=== PATIENT | male | born 1990 | race Caucasian/White ===

== ENCOUNTER 2018-08-13 09:10 | Observation (INO) | payer BC ==
--- NOTE | 2018-08-13 08:35 | PDANEPAE ---
ANE History of Present Illness 3 degree heart block ANE Past Medical History - Cardiovascular History Hx Hypertension: No Hx Arrhythmias: Yes Hx Chest Pain: Yes Hx Coronary Artery / Peripheral Vascular Disease: No Hx CHF / Valvular Disease: No Hx Palpitations: No - Pulmonary History Hx COPD: No Hx Asthma/Reactive Airway Disease: No Hx Recent Upper Respiratory Infection: No Hx Oxygen in Use at Home: No Hx Sleep Apnea: No - Endocrine History Hx Diabetes: No Hypothyroid: No Hyperthyroid: No Obesity: no - Renal History Hx Renal Disorders: No - Liver History Hx Hepatic Disorders: No - Neurological & Psychiatric Hx Hx Neurological and Psychiatric Disorders: No - Cancer History Hx Cancer: No - Congenital Disorder History Hx Congenital Disorders: No - GI History GERD: no Hx Gastrointestinal Disorders: No - Chronic Pain History Chronic Pain: No ANE Review of Systems Review of systems is: negative Review of Systems: - Exercise capacity METS (RN): 4 METS ANE Patient History - Allergies Allergies/Adverse Reactions: No Known Allergies Allergy (Verified 08/06/18 10:49) - Home Medications Home medications: home medication list seen and reviewed Home Medications: NK [No Known Home Meds] 05/29/15 [Last Taken Unknown] - NPO status NPO Status: no food or drink >8 hours - Anes Hx Anes Hx: no prior problems - Smoking Hx Smoking Status: Never smoked Marijuana use: No - Alcohol Use Alcohol Use: Rarely - Family Anes Hx Family Anes Hx: none ANE Physical Exam - Airway Neck exam: FROM Mallampati Score: Class 2 Mouth exam: normal dental/mouth exam - Pulmonary Pulmonary: no respiratory distress, clear to auscultation - Cardiovascular Cardiovascular: regular rate and rhythym, no murmur, rub, or gallop - ASA Status ASA Status: III ANE Anesthesia Plan Anesthesia Plan: MAC Total IV Anesthesia: Yes
[2018-08-13] MEDS ORDERED: diphenhydrAMINE 25 MG CAP PO ONE (09:21)
[2018-08-13] MEDS ORDERED: ceFAZolin 2 GM/DEXTROSE 100 ML IV ONE (09:21)
[2018-08-13] MEDS ORDERED: NS 1,000 ML IV ONE (09:21)
[2018-08-13 10:17] LABS: PLATELET COUNT 192 10^3/uL (150-400)
[2018-08-13 10:24] LABS: INR 1.02 (0.83-1.16); PROTIME(PATIENT) 13.6 SEC (12.0-15.0)
--- NOTE | 2018-08-13 11:54 | PDGENHP ---
History & Physical Chief Complaint: presyncope, f/h of scd, 9 s of asymptomatic CHB at night Relevant Physical Exam: s1s2 rrr cta ao3 Cardiorespiratory Assessment: for micra pm implant. linq explant
[2018-08-13] MEDS ORDERED: LIDOCAINE 1% 300 MG/30 ML SDV ONE (11:55)
[2018-08-13] MEDS ORDERED: BUPIVACAINE 0.75% 10 ML SDV ONE (11:55)
[2018-08-13] MEDS ORDERED: MIDAZOLAM 2 MG/2 ML VIAL ONE (12:31)
[2018-08-13] MEDS ORDERED: PROPOFOL/EMULSION 500 MG/50 ML BOTTLE IV ONE (12:47)
[2018-08-13] MEDS ORDERED: fentaNYL 100 MCG/2 ML INJ ONE ×2 (12:47→13:57)
[2018-08-13] MEDS ORDERED: IOPAMIDOL (ISOVUE-300) 100 ML BTL ONE ×2 (12:54→13:50)
[2018-08-13] MEDS ORDERED: MIDAZOLAM 2 MG/2 ML VIAL IVP ONE (13:07)
[2018-08-13] MEDS ORDERED: HEPARIN 10,000 UNIT/10 ML MDV (1,000 UNIT/ML) ONE (13:08)
--- NOTE | 2018-08-13 13:08 | POSTANESTH ---
Post Anesthetic Evaluation Cardiovascular Status: Normal, Stable Respiratory Status: Normal, Stable Level of Consciousness/Mental Status: Can Participate in Eval Pain Control: Adequate, Prn Tx Ordered Nausea/Vomiting Control: Adequate, Prn Tx Ordered Complications Possibly Related to Anesthesia: None Noted
[2018-08-13] MEDS ORDERED: ONDANSETRON 4 MG/2 ML VIAL ONE (13:44)
[2018-08-13] MEDS ORDERED: DEXAMETHASONE 4 MG/ML VIAL ONE (13:44)
[2018-08-13] MEDS ORDERED: LIDOCAINE 2% 5 ML SDV ONE (13:45)
[2018-08-13] MEDS ORDERED: fentaNYL 100 MCG/2 ML INJ IVP PRN (15:32)
[2018-08-13] MEDS ORDERED: NALOXONE HCL 0.4 MG/ML INJ IVP PRN (15:32)
[2018-08-13] MEDS ORDERED: MEPERIDINE 25 MG/0.5 ML AMP IVP PRN (15:32)
[2018-08-13] MEDS ORDERED: PROMETHAZINE HCL 25 MG/ML INJ IVP PRN (15:32)
[2018-08-13] MEDS ORDERED: ONDANSETRON 4 MG/2 ML VIAL IVP PRN (15:32)
[2018-08-14 06:31] VITALS: BP 109/48
[2018-08-14 06:33] LABS: PLATELET COUNT 193 10^3/uL (150-400)
[2018-08-14] MEDS ORDERED: PNEUMOCOCCAL 0.5ML VACCINE VIAL (PNEUMOVAX 23) IM ONE (08:31)
--- NOTE | 2018-08-14 21:28 | GDS ---
[f rep st] DISCHARGE SUMMARY SUPERVISING PHARMACY SERVICES DIRECTOR: Wesley Dee MD ADMISSION DIAGNOSES: Intermittent complete heart block. DISCHARGE DIAGNOSES: Intermittent complete heart block, status post implant of a leadless permanent pacemaker. PROCEDURES PERFORMED DURING HOSPITALIZATION: 1. Electrocardiogram. 2. Chest x-ray. 3. Implant of a Micra leadless permanent pacemaker. HOSPITAL COURSE: Patient presented 08/13/2018, for implant of a leadless permanent pacemaker in the setting of intermittent complete heart block. He underwent successful Micra implantation with Dr. Wesley Dee without any intra- procedure complications. He has had increased ventricular ectopy following his procedure, which is mildly symptomatic and has slowly improved throughout the night. He has been ambulating around his room this morning without issue, and he is appropriate and stable for discharge home today. CURRENT PHYSICAL EXAMINATION: GENERAL: Alert and oriented x4, no apparent distress. VITAL SIGNS: Blood pressure 109/48, heart rate 84, respiratory rate 15, SpO2 98% on room air, temp 36.7 degrees Celsius. RESPIRATORY: Lungs are clear to auscultation without adventitious breath sounds. CARDIAC: Normal S1 and S2. No S3, S4, or murmurs. Rhythm is regular. ABDOMEN: Normoactive bowel sounds times all 4 quadrants. No masses or tenderness. Abdomen is soft to palpation. SKIN: [place], warm, dry without cyanosis, clubbing, or peripheral edema. EXTREMITIES: Right groin pursestring suture removed intact without evidence of hematoma, redness, oozing, swelling, or warmth. Pulses are 2+ bilaterally. No edema. LABORATORY STUDIES: Drawn today. CBC and BMP are stable compared to preprocedure. PROCEDURES: Micra permanent implant of a leadless permanent pacemaker as mentioned above. Device interrogation this morning demonstrates normal device function. Chest x-ray immediately post procedure demonstrated normal lead positioning without new acute abnormalities. DISCHARGE DISPOSITION: Patient will be discharged home in stable condition. He is under activity restrictions as below. DISCHARGE MEDICATIONS: Please see discharge medication reconciliation sheet for full details. Please note that there have been no medication changes during this hospitalization. DISCHARGE INSTRUCTIONS: Post Micra implant instructions reviewed with patient and his father in detail. 1. We discussed activity restrictions including lifting no more than 10 pounds and avoiding strenuous exercise for the next month. 2. He will avoid submerged bathing for at least the next 10 days or until his groin site appears healed. 3. He will get up and walk around every 45 minutes for the next 45 days. 4. We reviewed bleeding precautions and monitoring for signs of lightheadedness , dizziness, syncope, or presyncope. Patient and father verbalized understanding regarding all discharge instructions. He understands that if his ventricular ectopy persists longer than 1 month, we may consider retrieval of his leadless pacemaker and repositioning to an alternative location in the ventricle. He will plan to follow up in 1 month, sooner for any new or concerning symptoms. TIME SPENT ON DISCHARGE: Greater than 30 minutes. /[id number]/MODL MTDD
--- NOTE | 2018-08-14 21:41 | EPPROC ---
Electrophysiology Procedure Note: Procedure date 08/13/18 IMPLANTATION OF [employer] MICRA LEADLESS PACEMAKER Patient was brought to the EP lab in fasting nonsedated state. Anesthesiologist administered LMA. Right femoral vein was accessed using modified Seldinger technique under ultrasound guidance. A [id number] stitch was placed around the wire. 1 cm incision was made at the entry site and dilated appropriately. 8 Tamazight sheath was placed in the right femoral vein. Venogram was done to confirm appropriate size of vein for large sheath and to rule out anatomic aberrations. All sheath and catheter manipulations were performed under biplane fluoroscopy. Heparin 3000 units x 2 was administered intravenously. Moreover heparinized saline was infused through the side port of the Micra sheath at 150 mL/hour. 0.035 in J guidewire was advanced to the superior vena cava. Over this a 5 Tamazight straight glide catheter was advanced into the superior vena cava. J guidewire was exchanged for a GI Trackerquist stiff guidewire. Tract was pre-dilated with 14 and 20 Fr dilators. Micra 27 Fr sheath was flushed and advanced to the mid right atrium under fluoroscopy and the guidewire and dilator were removed. Micra delivery system was flushed according to instructions and advanced into the Micra sheath. Micra sheath was pulled back into the inferior vena cava. Micra delivery system was advanced through the tricuspid valve into the right ventricle. Appropriate location for pacemaker placement was identified. Right ventriculogram was performed in two views. Delivery system was advanced further , device was deployed. Multiple cine - angiography views were obtained during tug test to confirm that 2 of 4 tines were appropriately deployed. There were 4 locations that did not yield thresholds of < 1 V @ 0.24 ms. Each time the device was retrieved and retracted into the sheath. Once the device was removed and inspected for clot, there was none. Final (5th) location was at the high interventricular septum. This yielded excellent pacing thresholds. Device parameters were checked and found to be excellent. Device parameters were re-checked after 5 min and since they were stable, the retaining suture was cut and gently pulled out. Device remained in stable location after suture was removed. Device parameters remained unchanged with expected slight increase in impedance. 27 Tamazight sheath was removed and figure of 8 suture was applied around the femoral access site. Manual pressure was also applied. Patient left the EP lab in stable condition. There were no immediate complications. Device [employer] Micra [id number] Placement RV Septum R wave 11.3 mV Impedance 930 ohm Threshold 0.63 V @ 0.24 ms Patient Problems: Problems Problem Status Onset Near syncope Acute Complete heart block Acute Chest pain Acute
--- NOTE | 2018-08-19 15:15 | CPEKG ---
Test Reason : OPEN Blood Pressure : / mmHG Vent. Rate : 063 BPM Atrial Rate : 063 BPM P-R Int : 267 ms QRS Dur : 078 ms QT Int : 418 ms P-R-T Axes : 060 064 047 degrees QTc Int : 428 ms Sinus rhythm Prolonged NE interval Incomplete right bundle branch block Confirmed by Felix Bell ([id number]) on 08/19/2018 3:15:22 PM Referred By: Wesley Dee Confirmed By:Felix Bell
--- NOTE | 2018-08-20 11:06 | CPEKG ---
Test Reason : OPEN Blood Pressure : / mmHG Vent. Rate : 064 BPM Atrial Rate : 064 BPM P-R Int : 272 ms QRS Dur : 099 ms QT Int : 416 ms P-R-T Axes : 056 062 049 degrees QTc Int : 430 ms Sinus rhythm Prolonged [place] interval Incomplete right bundle branch block Confirmed by Felix Bell ([id number]) on 08/20/2018 11:06:23 AM Referred By: Wesley Dee Confirmed By:Felix Bell
--- NOTE | 2018-08-20 11:12 | CPEKG ---
Test Reason : OPEN Blood Pressure : / mmHG Vent. Rate : 067 BPM Atrial Rate : 068 BPM P-R Int : 271 ms QRS Dur : 098 ms QT Int : 406 ms P-R-T Axes : 079 066 052 degrees QTc Int : 429 ms Sinus rhythm Prolonged AL interval Confirmed by Felix Bell ([id number]) on 08/20/2018 11:11:59 AM Referred By: Wesley Dee Confirmed By:Felix Bell
== END 2018-08-14 09:50 | disposition home or self-care (01) ==
LOC: FCATH 09:10 → F2N 16:01 → UNDOADMIN 16:01 → INTOOBSV 16:07 → F2N 16:07
PROVIDERS: ADMIT Internal Medicine Cardiovascular Disease; ATTEND Internal Medicine Cardiovascular Disease
DX: I44.2 Atrioventricular block, complete (principal); Z23 Encounter for immunization
CPT/HCPCS: 33274; 71045; 90471; C1769; G0378; G0379; C1731; C1786; G0008; G0009; J0690; J1100; J1644; J2250; J2405; J2704; J3010; Q9967

== ENCOUNTER → 2018-09-08 | Outpatient (CLI) | payer BC | LOC: FIMAGING 14:41 | PROVIDERS: ATTEND Registered Nurse | DX: Z95.0 Presence of cardiac pacemaker (principal) ==